=== PATIENT | male | born 1990 | race African-American/Black ===

== ENCOUNTER 2019-09-13 20:26 | Emergency (ER) | payer OTHER ==
[2019-09-13 20:54] VITALS: BP 122/69; PULSE 80; TEMP 98.2; BMI 26.3
[2019-09-13 22:03] LABS: ARTERIAL BLD GAS O2 SATURATION 94.8 % (95-98); ARTERIAL BLOOD GAS BASE EXCESS 1.6 meq/l (-2-2); ARTERIAL BLOOD GAS PCO2 43.1 mmHg (35-45); ARTERIAL BLOOD GAS PO2 75.4 mmHg (80-100); CARBOXYHEMOGLOBIN 0.9 % (0-2)
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
== END 2019-09-13 23:15 | disposition home or self-care (01) ==
LOC: JERFT 20:26
DX: T59.811A Toxic effect of smoke, accidental (unintentional), initial encounter (principal); J70.5 Respiratory conditions due to smoke inhalation; Y92.038 Other place in apartment as the place of occurrence of the external cause; Z87.09 Personal history of other diseases of the respiratory system; Z91.011 Allergy to milk products
CPT/HCPCS: 36600; 82375; 82803; 83050; 99283-25